=== PATIENT | female | born 1965 | race Caucasian/White ===

== ENCOUNTER → 2020-07-09 | Outpatient (CLI) | payer BC ==
--- NOTE | 2020-07-14 08:10 | MM ---
Reason for exam: screening (asymptomatic). Last mammogram was performed 1 year and 4 months ago. History: Benign lumpectomy of the right breast, 2010. Took hormonal contraceptives for 4 years beginning at age 20. Physical Findings: A clinical breast exam by your physician is recommended on an annual basis and results should be correlated with mammographic findings. MG 3D Screening Mammo W/Cad Bilateral CC and MLO view(s) were taken. Prior study comparison: March 19, 2019, mammogram, performed at [facility]. March 13, 2018, mammogram, performed at [facility]. There are scattered fibroglandular densities. Finding #1: There is suspicious, high, spiculated architectural distortion located 9 cm from the nipple in the lower quadrant, middle position of the left breast on MLO. Finding #2: There are typically benign round calcifications in both breasts. ASSESSMENT: Incomplete: need additional imaging evaluation, BI-RAD 0 RECOMMENDATION: Special view mammogram of the left breast. If lesion persists on supplemental views, image directed ultrasound is recommended. [facility] will attempt to contact patient to return for supplemental views and ultrasound if indicated.
== END | disposition home or self-care (01) ==
LOC: RADMAMWWP 08:14
PROVIDERS: ATTEND Family Medicine
DX: Z12.31 Encounter for screening mammogram for malignant neoplasm of breast (principal)
CPT/HCPCS: 77063; 77067

== ENCOUNTER → 2020-07-17 | Outpatient (CLI) | payer BC ==
--- NOTE | 2020-07-17 09:21 | MM ---
Reason for exam: additional evaluation requested from abnormal screening. Last mammogram was performed less than 1 month ago. History: Patient is postmenopausal. Benign lumpectomy of the right breast, 2010. Took hormonal contraceptives for 4 years beginning at age 20. Physical Findings: Nurse Summary: 0.5cm nodule in the left breast at 6 o'clock and a 1cm nodule in the left breast at 3 o'clock (nurse TM). MG 3D Work Up W/Cad LT LM and spot compression MLO view(s) were taken of the left breast. Prior study comparison: July 09, 2020, bilateral MG 3d screening mammo w/cad. March 19, 2019, mammogram, performed at [facility]. There are scattered fibroglandular densities. The inferior asymmetric density disperses. Palpable markers at 3 o'clock and 6 o'clock. These results were verbally communicated with the patient and result sheet given to the patient on 07/17/20. ASSESSMENT: Incomplete: need additional imaging evaluation, BI-RAD 0 RECOMMENDATION: Ultrasound of the left breast. (targeted to nurse palpated 3 o'clock and 6 o'clock)
--- NOTE | 2020-07-17 09:24 | USB ---
Reason for exam: additional evaluation requested from abnormal screening. History: Patient is postmenopausal. Benign lumpectomy of the right breast, 2009. Took hormonal contraceptives for 4 years beginning at age 20. US Breast Workup Limited LT Left limited breast ultrasound including focal area of concern, retroareolar and axilla demonstrates no cystic or solid lesion seen. Left 3-6 o'clock at the nurse palpated areas. These results were verbally communicated with the patient and result sheet given to the patient on 07/17/20. ASSESSMENT: Negative, BI-RAD 1 RECOMMENDATION: Return to routine screening mammogram schedule for both breasts. Manage on a clinical basis with regard to any suspicious palpables.
== END | disposition home or self-care (01) ==
LOC: RADMAMWWP 07:31
PROVIDERS: ATTEND Family Medicine
DX: R92.8 Other abnormal and inconclusive findings on diagnostic imaging of breast (principal)
CPT/HCPCS: 77061; 77065

== ENCOUNTER 2021-11-10 06:15 | Day surgery (SDC) | payer BC ==
[2021-11-04 16:46] VITALS: BMI 38.7
[~2021-11-10 06:15] MED LIST: LACTATED RINGERS 1,000 ML IV SCH; LIDOCAINE 1% (10MG/ML) FOR IV START INTRADERMA PRN
[2021-11-10 06:46] VITALS: TEMP 98.2
[2021-11-10] MEDS ORDERED: PROPOFOL 10 MG/ML 20 ML VIAL IV ONE (07:06)
--- NOTE | 2021-11-10 07:24 | P.PCN ---
Date of Procedure: 11/10/21 Procedure(s) Performed: BRIEF HISTORY: Patient is a 56-year-old pleasant white female scheduled for an elective colonoscopy as a part of evaluation of prior history of colon polyps. Last colonoscopy was 3 years ago. PROCEDURE PERFORMED: Colonoscopy. PREOPERATIVE DIAGNOSIS: History of colon polyps. IV sedation per Anesthesia. PROCEDURE: After informed consent was obtained, the patient, was brought into the endoscopy unit. IV sedation was administered by Anesthesia under continuous monitoring. Digital rectal examination was normal. Initially the Olympus CF-160 flexible video colonoscope was then inserted in the rectum, gradually advanced into the cecum without any difficulty. Careful examination was performed as the scope was gradually being withdrawn. Ileocecal valve and the appendiceal orifice were visualized and appeared normal. Prep was excellent. The base of cecum there was a 7 mm polyp that was removed by snare polypectomy. Mucosa of the cecum, ascending colon, transverse colon, descending colon, sigmoid colon, and rectum appeared normal. Scattered sigmoid diverticulosis. Retroflexion was performed in the rectum and grade 2 internal hemorrhoids were seen. The patient tolerated the procedure well. IMPRESSION: 7 mm cecal polyp status post snare polypectomy Scattered sigmoid diverticulosis Grade 2 internal hemorrhoids RECOMMENDATIONS: Findings of this examination were discussed with the patient as well as her family. She was advised to follow with the biopsy results. If the biopsy reveals adenoma she can have a repeat colonoscopy in 5.
[2021-11-10 07:31] VITALS: BP 115/74; PULSE 85; RESP 12
== END 2021-11-10 08:12 | disposition home or self-care (01) ==
LOC: ORWHC2ENDO 06:15
PROVIDERS: ATTEND Internal Medicine Gastroenterology
DX: K57.30 Diverticulosis of large intestine without perforation or abscess without bleeding (principal); K64.8 Other hemorrhoids; Z86.010 Personal history of colon polyps
CPT/HCPCS: 45385; J2704; 88305

== ENCOUNTER 2023-11-25 07:48 | Emergency (ER) | payer BC ==
[2023-11-25] MEDS ORDERED: SODIUM CHLORIDE 0.9% 1,000 ML IV STA (08:06)
[2023-11-25] MEDS ORDERED: ONDANSETRON 4 MG/2 ML VIAL IVP STA (08:06)
[2023-11-25] MEDS ORDERED: KETOROLAC 15 MG/ML 1 ML VIAL IVP STA (08:07)
[2023-11-25 08:13] VITALS: PULSE 87; RESP 18; TEMP 97.8
--- NOTE | 2023-11-25 08:18 | ED ---
Abdominal Pain HPI - General Chief Complaint: Back Pain/Injury Stated Complaint: Gallstones-back pain Time Seen by Provider: 11/25/23 07:49 Source: patient, RN notes reviewed Mode of arrival: ambulatory Limitations: no limitations - History of Present Illness Initial Comments: This is a 58-year-old female who presents to the emergency department for right upper quadrant pain with radiation into the back. States that she has a known history of gallstones and has been to the emergency department 3 times within the last few weeks. The pain was initially only in the right upper quadrant, however starting yesterday it began to radiate to the back. She had dairy free grilled cheese for dinner last night, and is attempting to eat blander foods without much relief in symptoms. She is now starting to become nauseous. She has not taken any over the counter medication for management of her symptoms. Her most recent ultrasound was about a month ago. She does have an upcoming appointment with Dr. Cooper, general surgery, in December, however the pain got much worse and she is worried about being able to make it until her appointment. MD Complaint: abdominal pain - Related Data Home Medications Medication Instructions Recorded Confirmed Atorvastatin [Lipitor] 40 mg PO DAILY 11/04/21 11/04/21 Calcium Carbonate/Vitamin D3 1 tab PO DAILY 11/25/23 11/25/23 [Calcium 600-D3 20 mcg (800 Unit)] Ibuprofen [Advil] 200 mg PO Q6H PRN 11/25/23 11/25/23 L.acidoph,Paracasei, B.lactis 1 cap PO DAILY 11/25/23 11/25/23 [Probiotic] Levothyroxine Sodium [Synthroid] 100 mcg PO AC-BRKFST 11/25/23 11/25/23 Multivitamins, Thera [Multivitamin 1 tab PO DAILY 11/25/23 11/25/23 (formulary)] [place]-3/Dha/Epa/Fish Oil [Fish Oil 1 cap PO DAILY 11/25/23 11/25/23 1,000 mg Softgel] Phytosterol/Pantethine [Cholestoff 1 cap PO AC-BRKFST 11/25/23 11/25/23 Complete 300Mg Sfgl] Vit C/E/Zn/Coppr/Lutein/Zeaxan 1 cap PO BID 11/25/23 11/25/23 [Preservision Areds 2 Softgel] Previous Rx's Medication Instructions Recorded HYDROcodone/APAP 5-325MG [Acosta 1 tab PO Q6HR PRN 3 Days #12 tab 11/25/23 5-325] Ketorolac [Toradol] 10 mg PO Q6HR PRN #15 tab 11/25/23 Ondansetron Odt [Zofran Odt] 4 mg PO Q8HR PRN #15 tab 11/25/23 Allergies Allergy/AdvReac Type Severity Reaction Status Date / Time oseltamivir [From Tamiflu] AdvReac Abdominal Verified 11/25/23 10:47 Pain Review of Systems ROS Statement: Those systems with pertinent positive or pertinent negative responses have been documented in the HPI. ROS Other: All systems not noted in ROS Statement are negative. Past Medical History Past Medical History: Eye Disorder, Hyperlipidemia, Thyroid Disorder Additional Past Medical History / Comment(s): MACULAR DEGENERATION, gallstones, History of Any Multi-Drug Resistant Organisms: None Reported Past Surgical History: Breast Surgery Additional Past Surgical History / Comment(s): BREAST BIOPSY Past Anesthesia/Blood Transfusion Reactions: No Reported Reaction Past Psychological History: No Psychological Hx Reported Smoking Status: Never smoker Past Alcohol Use History: Occasional, Rare Past Drug Use History: None Reported - Past Family History Mother Family Medical History: No Reported History General Exam Limitations: no limitations General appearance: alert, in distress Head exam: Present: atraumatic, normocephalic, normal inspection Respiratory exam: Present: normal lung sounds bilaterally. Absent: respiratory distress, wheezes, rales, rhonchi, stridor Cardiovascular Exam: Present: regular rate, normal rhythm, normal heart sounds. Absent: systolic murmur, diastolic murmur, rubs, gallop, clicks GI/Abdominal exam: Present: soft, tenderness (RUQ), normal bowel sounds. Absent: distended Neurological exam: Present: alert, oriented X3, CN II-XII intact Psychiatric exam: Present: normal affect, normal mood Skin exam: Present: warm, dry, intact, normal color. Absent: rash Course Vital Signs 11/25/23 11/25/23 07:55 11:54 Temperature 97.8 F Pulse Rate 87 Respiratory 18 Rate Blood Pressure 154/102 125/78 O2 Sat by Pulse 94 L Oximetry Medical Decision Making - Medical Decision Making This is a 58-year-old female who presents to the emergency department for right upper quadrant pain. Was pt. sent in by a medical professional or institution? @ -No Did you speak to anyone other than the patient for history? @ -No Did you review nursing and triage notes? @ -Yes, and I agree, it is accurate with regards to the patient's symptoms. Were old charts reviewed? @ -No Differential Diagnosis? @ -Differential Abdominal Pain Women: Appendicitis, Cholecystitis, diverticulosis, ischemic bowel, pancreatitis, hepatitis, UTI, gastroenteritis, AAA, incarcerated hernia, bowel obstruction, constipation, inflammatory bowel, hepatitis, peptic ulcer disease, splenic infarction, perforated viscus, vulvitis, ovarian torsion, PID, kidney stone, placenta abruption, this is not meant to be an all-inclusive list EKG interpreted by me (3pts min.)? @ -EKG interpreted by me demonstrating the following: Sinus rhythm. Ventricular rate 69 beats per minute, NM interval 179 ms, QRS duration 102 ms, QTC 390 ms. X-rays interpreted by me (1pt min.)? @ -Not obtained CT interpreted by me (1pt min.)? @ -Not obtained U/S interpreted by me (1pt. min.)? @ -Gallbladder US obtained. My interpretation identifies no evidence of gallbladder wall thickening. What testing was considered but not performed? (CT, X-rays, U/S, labs)? Why? @ -None What meds were considered but not given? Why? @ -None Did you discuss the management of the patient with other professionals? @ -No Did you reconcile home meds? @ -No Was smoking cessation discussed for >3mins.? @ -No Was critical care preformed (if so, how long)? @ -No Were there social determinants of health that impacted care today? How? (Homelessness, low income, unemployed, alcoholism, drug addiction, transportation, low edu. Level, literacy, decrease access to med. care, long-term, rehab)? @ -No Was there de-escalation of care discussed even if they declined? (Discuss DNR or withdrawal of care, Hospice)? @ -No What co-morbidities impacted this encounter? (DM, HTN, Smoking, COPD, CAD, Cancer, CVA, Hep., AIDS, mental health diagnosis, sleep apnea, morbid obesity)? @ -Morbid obesity, HLD Was patient admitted / discharged? @ -Discharged. Lab work obtained and found to be unremarkable. Gallbladder ultrasound obtained revealing sand-like stones/sludge in the gallbladder without evidence of acute cholecystitis or biliary duct dilation. Patient treated with I V fluids, Toradol, and Zofran with significant relief in symptoms. Advised that there is no indication for immediate surgical intervention at this time. I did call the front desk agent of Dr. Cooper's office to see if they could schedule the patient for a sooner appointment, however they advised that she is going on vacation and they are unable to move the patient up. This was discussed with the patient. Prescription for Toradol, Acosta, and Zofran provided with dosing instructions reviewed. Advised to take these as needed for symptomatic management. Also discussed following a low-fat and bland diet for the meantime to reduce the risk of future flareups. Patient discharged home in stable c ondition. Undiagnosed new problem with uncertain prognosis? @ -None Drug Therapy requiring intensive monitoring for toxicity (Heparin, Nitro, In sulin, Cardizem)? @ -None Were any procedures done? @ -None Diagnosis/symptom? @ -Cholelithiasis, biliary colic Acute, or Chronic, or Acute on Chronic? @ -Acute Uncomplicated (without systemic symptoms) or Complicated (systemic symptoms)? @ -Uncomplicated Side effects of treatment? @ -None Exacerbation, Progression, or Severe Exacerbation] @ -Not applicable Poses a threat to life or bodily function? @ -Not at this time Return precautions reviewed in depth, the patient is instructed to return to the emergency department with any new, worsening, or concerning symptoms. Patient v erbalized understanding. This case was discussed in detail with the attending ED physician, Dr. Wheeler. Presentation, findings, and treatment plan discussed in detail as well. - Lab Data Result diagrams: 11/25/23 08:09 11/25/23 08:09 Lab Results 11/25/23 11/25/23 11/25/23 Range/Units 08:09 08:09 08:09 WBC 7.1 (3.8-10.6) k/uL RBC 4.79 (3.80-5.40) m/uL Hgb 14.5 (11.4-16.0) gm/dL Hct 41.9 (34.0-46.0) % MCV 87.6 (80.0-100.0) fL MCH 30.3 (25.0-35.0) pg MCHC 34.6 (31.0-37.0) g/dL RDW 12.5 (11.5-15.5) % Plt Count 225 (150-450) k/uL MPV 7.2 Neutrophils % 62 % Lymphocytes % 25 % Monocytes % 8 % Eosinophils % 3 % Basophils % 1 % Neutrophils # 4.4 (1.3-7.7) k/uL Lymphocytes # 1.8 (1.0-4.8) k/uL Monocytes # 0.6 (0-1.0) k/uL Eosinophils # 0.2 (0-0.7) k/uL Basophils # 0.0 (0-0.2) k/uL Sodium 140 (137-145) mmol/L Potassium 4.1 (3.5-5.1) mmol/L Chloride 104 (98-107) mmol/L Carbon Dioxide 23 (22-30) mmol/L Anion Gap 13 mmol/L BUN 15 (7-17) mg/dL Creatinine 0.66 (0.52-1.04) mg/dL Est GFR (CKD-EPI)AfAm >90 (>60 ml/min/1.73 sqM) Est GFR (CKD-EPI)NonAf >90 (>60 ml/min/1.73 sqM) Glucose 104 H (74-99) mg/dL Plasma Lactic Acid Sanjay 1.3 (0.7-2.0) mmol/L Calcium 9.4 (8.4-10.2) mg/dL Total Bilirubin 1.2 (0.2-1.3) mg/dL AST 26 (14-36) U/L ALT 29 (4-34) U/L Alkaline Phosphatase 116 (38-126) U/L Troponin I (0.000-0.034) ng/mL Total Protein 7.5 (6.3-8.2) g/dL Albumin 4.3 (3.5-5.0) g/dL Amylase 71 (30-110) U/L Lipase 157 (23-300) U/L 11/25/23 Range/Units 08:09 WBC (3.8-10.6) k/uL RBC (3.80-5.40) m/uL Hgb (11.4-16.0) gm/dL Hct (34.0-46.0) % MCV (80.0-100.0) fL MCH (25.0-35.0) pg MCHC (31.0-37.0) g/dL RDW (11.5-15.5) % Plt Count (150-450) k/uL MPV Neutrophils % % Lymphocytes % % Monocytes % % Eosinophils % % Basophils % % Neutrophils # (1.3-7.7) k/uL Lymphocytes # (1.0-4.8) k/uL Monocytes # (0-1.0) k/uL Eosinophils # (0-0.7) k/uL Basophils # (0-0.2) k/uL Sodium (137-145) mmol/L Potassium (3.5-5.1) mmol/L Chloride (98-107) mmol/L Carbon Dioxide (22-30) mmol/L Anion Gap mmol/L BUN (7-17) mg/dL Creatinine (0.52-1.04) mg/dL Est GFR (CKD-EPI)AfAm (>60 ml/min/1.73 sqM) Est GFR (CKD-EPI)NonAf (>60 ml/min/1.73 sqM) Glucose (74-99) mg/dL Plasma Lactic Acid Sanjay (0.7-2.0) mmol/L Calcium (8.4-10.2) mg/dL Total Bilirubin (0.2-1.3) mg/dL AST (14-36) U/L ALT (4-34) U/L Alkaline Phosphatase (38-126) U/L Troponin I <0.012 (0.000-0.034) ng/mL Total Protein (6.3-8.2) g/dL Albumin (3.5-5.0) g/dL Amylase (30-110) U/L Lipase (23-300) U/L - Radiology Data Radiology results: report reviewed, image reviewed Disposition Clinical Impression: Biliary colic, Cholelithiasis Disposition: HOME SELF-CARE Instructions (If sedation given, give patient instructions): Biliary Colic (ED), Gallstones (ED) Additional Instructions: Return to the emergency department with any new, worsening, or concerning symptoms. Take the Toradol with Tylenol as needed for pain relief. If you choose to take the Toradol, do not take any other anti-inflammatories such as ibuprofen, take one or the other. Take the Acosta sparingly when your pain is the most severe and be aware that it may make you drowsy. You can take the Zofran up to every 8 hours as needed for nausea and vomiting. Slowly advance your diet as tolerated and remain well-hydrated. Make sure you follow a low-fat and very bland diet for the meantime to reduce the risk of future flareups. Prescriptions: HYDROcodone/APAP 5-325MG [Acosta 5-325] 1 tab PO Q6HR PRN 3 Days #12 tab PRN Reason: Pain Ketorolac [Toradol] 10 mg PO Q6HR PRN #15 tab PRN Reason: Pain Ondansetron Odt [Zofran Odt] 4 mg PO Q8HR PRN #15 tab PRN Reason: Nausea And Vomiting Is patient prescribed a controlled substance at d/c from ED?: Yes When asked, does pt state using other controlled substances?: No If prescribed controlled substance>3 days was MAPS reviewed?: Prescribed <3 Days Referrals: Paty Mei MD [Primary Care Provider] - 1-2 days
[2023-11-25 08:30] LABS: Basophils % (A) 1 %; Eosinophils # (A) 0.2 k/uL (0-0.7); Eosinophils % (A) 3 %; HCT 41.9 % (34.0-46.0); HGB 14.5 gm/dL (11.4-16.0); Lymphocytes # (A) 1.8 k/uL (1.0-4.8); Lymphocytes % (A) 25 %; MCH 30.3 pg (25.0-35.0); MCHC 34.6 g/dL (31.0-37.0); MCV 87.6 fL (80.0-100.0); Mean Platelet Volume 7.2; Monocytes # (A) 0.6 k/uL (0-1.0); Monocytes % (A) 8 %; Neutrophils # (A) 4.4 k/uL (1.3-7.7); Neutrophils % (A) 62 %; Platelet Count 225 k/uL (150-450); RBC 4.79 m/uL (3.80-5.40); RDW 12.5 % (11.5-15.5); WBC 7.1 k/uL (3.8-10.6)
[2023-11-25 08:44] LABS: ALT 29 U/L (4-34); AST 26 U/L (14-36); African American GFR (CKD) >90 (>60 ml/min/1.73 sqM); Albumin 4.3 g/dL (3.5-5.0); Alkaline Phosphatase 116 U/L (38-126); Amylase 71 U/L (30-110); Anion Gap 13 mmol/L; Blood Urea Nitrogen 15 mg/dL (7-17); Calcium 9.4 mg/dL (8.4-10.2); Carbon Dioxide 23 mmol/L (22-30); Chloride 104 mmol/L (98-107); Glucose 104 mg/dL (74-99); Lipase 157 U/L (23-300); Non-African American GFR(CKD) >90 (>60 ml/min/1.73 sqM); Potassium 4.1 mmol/L (3.5-5.1); Sodium 140 mmol/L (137-145); Total Bilirubin 1.2 mg/dL (0.2-1.3); Total Protein 7.5 g/dL (6.3-8.2)
--- NOTE | 2023-11-25 09:13 | US ---
EXAMINATION TYPE: US gallbladder DATE OF EXAM: 11/25/2023 COMPARISON: NONE CLINICAL INDICATION: Female, 58 years old with history of RUQ pain, hx of gallstones; patient has 3 e pisodes of back pain in 6 weeks and thinks it is her known GB stones TECHNIQUE: Multiple sonographic images of the right upper quadrant are obtained. FINDINGS: EXAM MEASUREMENTS: Liver Length: 19.6 cm Gallbladder Wall: 0.2 cm CBD: 0.6 cm Right Kidney: 10.4 x 4.6 x 4.5 cm Pancreas: wnl Liver: heterogeneous, echodense and enlarged Gallbladder: possible sand like stones seen within dependant portion when rolled patient LLD. No lar ge shadowing gallstones. Evidence for sonographic Gurrola's sign: no CBD: wnl Right Kidney: wnl IMPRESSION: 1. Sand-like stones/sludge suggested within the gallbladder. 2. No sonographic evidence of cholecystitis or biliary ductal dilatation. 3. Hepatomegaly and hepatic steatosis.
[2023-11-25 12:16] VITALS: BP 125/78
== END 2023-11-25 11:55 | disposition home or self-care (01) ==
LOC: EC 07:48
DX: K76.0 Fatty (change of) liver, not elsewhere classified (principal); K80.50 Calculus of bile duct without cholangitis or cholecystitis without obstruction; E78.5 Hyperlipidemia, unspecified; E07.9 Disorder of thyroid, unspecified; Z79.890 Hormone replacement therapy; Z79.899 Other long term (current) drug therapy; Z88.8 Allergy status to other drugs, medicaments and biological substances
CPT/HCPCS: 36415; 93005; 80053; 82150; 83605; 83690; 84484; 85025; 76705; 99284; 96374; 96375; 96361; J2405; J1885

== ENCOUNTER 2023-11-28 04:27 | Emergency (ER) | payer BC ==
[2023-11-28 04:56] VITALS: RESP 18
[2023-11-28] MEDS ORDERED: HYDROCORTISONE 2.5% RECTAL CREAM 30 GM TUBE RECTAL STA (06:02)
[2023-11-28] MEDS ORDERED: BENZOCAINE 20% HEMORRHOIDAL OINT 28GM RECTAL STA (06:02)
[2023-11-28] MEDS ORDERED: KETOROLAC 15 MG/ML 1 ML VIAL IM STA (06:02)
[2023-11-28] MEDS ORDERED: LACTULOSE 20 GM/30 ML CUP PO ONE (06:02)
--- NOTE | 2023-11-28 06:24 | ED ---
General Adult HPI - General Chief complaint: Recheck/Abnormal Lab/Rx Stated complaint: Constipation from pain meds Time Seen by Provider: 11/28/23 06:15 Source: patient, RN notes reviewed Mode of arrival: ambulatory Limitations: no limitations - History of Present Illness Initial comments: This is a 58 year old female who presents to the emergency department for constipation and hemorrhoidal pain. Her last bowel movement was 2 days ago. Yesterday and today when she was sitting on the toilet, she tried to push and states that it hurt her so bad that she was shaking. She tried a suppository, MiraLAX and preparation H with no relief. She also tried to do a manual disimpaction on herself, however this was too painful. Believes that the hemorrhoids are contributing to the constipation. Thinks that she needs an enema, but cannot do this herself. - Related Data Home Medications Medication Instructions Recorded Confirmed Atorvastatin [Lipitor] 40 mg PO DAILY 11/04/21 11/28/23 Calcium Carbonate/Vitamin D3 1 tab PO DAILY 11/25/23 11/28/23 [Calcium 600-D3 20 mcg (800 Unit)] Ibuprofen [Advil] 200 mg PO Q6H PRN 11/25/23 11/28/23 L.acidoph,Paracasei, B.lactis 1 cap PO DAILY 11/25/23 11/28/23 [Probiotic] Levothyroxine Sodium [Synthroid] 100 mcg PO AC-BRKFST 11/25/23 11/28/23 Multivitamins, Thera [Multivitamin 1 tab PO DAILY 11/25/23 11/28/23 (formulary)] [place]-3/Dha/Epa/Fish Oil [Fish Oil 1 cap PO DAILY 11/25/23 11/28/23 1,000 mg Softgel] Phytosterol/Pantethine [Cholestoff 1 cap PO AC-BRKFST 11/25/23 11/28/23 Complete 300Mg Sfgl] Vit C/E/Zn/Coppr/Lutein/Zeaxan 1 cap PO BID 11/25/23 11/28/23 [Preservision Areds 2 Softgel] Previous Rx's Medication Instructions Recorded HYDROcodone/APAP 5-325MG [[place] 1 tab PO Q6HR PRN 3 Days #12 tab 11/25/23 5-325] Ketorolac [Toradol] 10 mg PO Q6HR PRN #15 tab 11/25/23 Ondansetron Odt [Zofran Odt] 4 mg PO Q8HR PRN #15 tab 11/25/23 Allergies Allergy/AdvReac Type Severity Reaction Status Date / Time oseltamivir [From Tamiflu] AdvReac Abdominal Verified 11/28/23 10:00 Pain Review of Systems ROS Statement: Those systems with pertinent positive or pertinent negative responses have been documented in the HPI. ROS Other: All systems not noted in ROS Statement are negative. Past Medical History Past Medical History: Eye Disorder, Hyperlipidemia, Thyroid Disorder Additional Past Medical History / Comment(s): MACULAR DEGENERATION, gallstones, History of Any Multi-Drug Resistant Organisms: None Reported Past Surgical History: Breast Surgery Additional Past Surgical History / Comment(s): BREAST BIOPSY Past Anesthesia/Blood Transfusion Reactions: No Reported Reaction Past Psychological History: No Psychological Hx Reported Smoking Status: Never smoker Past Alcohol Use History: Occasional, Rare Past Drug Use History: None Reported - Past Family History Mother Family Medical History: No Reported History General Exam Limitations: no limitations General appearance: alert, in no apparent distress Head exam: Present: atraumatic, normocephalic, normal inspection Respiratory exam: Present: normal lung sounds bilaterally. Absent: respiratory distress, wheezes, rales, rhonchi, stridor Cardiovascular Exam: Present: regular rate, normal rhythm, normal heart sounds. Absent: systolic murmur, diastolic murmur, rubs, gallop, clicks GI/Abdominal exam: Present: soft, normal bowel sounds. Absent: distended, tenderness, guarding, rebound, rigid Neurological exam: Present: alert, oriented X3, CN II-XII intact Psychiatric exam: Present: normal affect, normal mood Skin exam: Present: warm, dry, intact, normal color. Absent: rash Course Vital Signs 11/28/23 11/28/23 04:44 11:29 Temperature 97.9 F 98.1 F Pulse Rate 94 81 Respiratory 18 18 Rate Blood Pressure 157/99 124/88 O2 Sat by Pulse 96 96 Oximetry Medical Decision Making - Medical Decision Making This is a 58 year old female who presents to the emergency department for constipation. Was pt. sent in by a medical professional or institution? @ -No Did you speak to anyone other than the patient for history? @ -No Did you review nursing and triage notes? @ -Yes, and I agree, it is accurate with regards to the patient's symptoms. Were old charts reviewed? @ -No Differential Diagnosis? @ -Differential Constipation: Medication, obstruction, tumor, this is not meant to be an all-inclusive list. EKG interpreted by me (3pts min.)? @ -Not obtained X-rays interpreted by me (1pt min.)? @ -KUB x-ray obtained. My interpretation identifies no dilation of small bowel loops. CT interpreted by me (1pt min.)? @ -Not obtained U/S interpreted by me (1pt. min.)? @ -Not obtained What testing was considered but not performed? (CT, X-rays, U/S, labs)? Why? @ -None What meds were considered but not given? Why? @ -None Did you discuss the management of the patient with other professionals? @ -No Did you reconcile home meds? @ -No Was smoking cessation discussed for >3mins.? @ -No Was critical care preformed (if so, how long)? @ -No Were there social determinants of health that impacted care today? How? (Homelessness, low income, unemployed, alcoholism, drug addiction, transportation, low edu. Level, literacy, decrease access to med. care, retirement, rehab)? @ -No Was there de-escalation of care discussed even if they declined? (Discuss DNR or withdrawal of care, Hospice)? @ -No What co-morbidities impacted this encounter? (DM, HTN, Smoking, COPD, CAD, Cancer, CVA, Hep., AIDS, mental health diagnosis, sleep apnea, morbid obesity)? @ -None Was patient admitted / discharged? @ -Discharged. KUB x-ray obtained demonstrating fecal material and gas throughout the colon and rectum without acute process. Given the discomfort and lack of improvement with over the counter regimens, she requested we proceed wi th an enema. Fleet enema administered and the patient was able to have a bowel movement and felt much better. She was discharged home with Proctosol-HC and Americaine ointment for further management of the hemorrhiods. Also advised Sitz baths and follow up with her PCP. Undiagnosed new problem with uncertain prognosis? @ -None Drug Therapy requiring intensive monitoring for toxicity (Heparin, Nitro, Insulin, Cardizem)? @ -None Were any procedures done? @ -None Diagnosis/symptom? @ -Constipation Acute, or Chronic, or Acute on Chronic? @ -Acute Uncomplicated (without systemic symptoms) or Complicated (systemic symptoms)? @ -Uncomplicated Side effects of treatment? @ -None Exacerbation, Progression, or Severe Exacerbation] @ -Not applicable Poses a threat to life or bodily function? @ -No Return precautions reviewed in depth, the patient is instructed to return to the emergency department with any new, worsening, or concerning symptoms. Patient verbalized understanding. This case was discussed in detail with the attending ED physician, Dr. Siddiqui. Presentation, findings, and treatment plan discussed in detail as well. - Radiology Data Radiology results: report reviewed, image reviewed Disposition Clinical Impression: Constipation, Hemorrhoids Disposition: HOME SELF-CARE Instructions (If sedation given, give patient instructions): Constipation (ED), High Fiber Diet (ED) Additional Instructions: Return to the emergency department with any new, worsening, or concerning symptoms. The proctosol cream provided can be used 2-4x daily and the Americaine cream can be applied up to 6x daily. Increase your fiber intake and try taking Sitz baths. Follow up with your primary care provider in 1-2 days. Is patient prescribed a controlled substance at d/c from ED?: No Referrals: Paty Mei MD [Primary Care Provider] - 1-2 days Time of Disposition: 11:10
[2023-11-28] MEDS ORDERED: NA PHOS,M-B/NA PHOS,DI-BA 133 ML ENEMA RECTAL STA (07:45)
--- NOTE | 2023-11-28 07:48 | XR ---
EXAMINATION TYPE: XR KUB DATE OF EXAM: 11/28/2023 6:17 AM CLINICAL INDICATION:Female, 58 years old with history of constipation; [facility] COMPARISON: None. TECHNIQUE: One radiographic view of the abdomen was obtained. FINDINGS: The bowel gas pattern is nonspecific without dilated loops of small or large bowel. There i s no evidence for organomegaly or pneumoperitoneum. The osseous structures are intact. No abnormal calcifications are present. Fecal material and gas are demonstrated throughout the colon and rectum. IMPRESSION: Nonspecific bowel gas pattern without radiographic evidence for acute process.
[2023-11-28] MEDS ORDERED: HYDROmorphone 1 MG/ML 1 ML SYRINGE IM STA (08:55)
[2023-11-28 11:37] VITALS: BP 124/88; PULSE 81; TEMP 98.1
== END 2023-11-28 11:31 | disposition home or self-care (01) ==
LOC: EC 04:27
DX: K59.00 Constipation, unspecified (principal); K64.9 Unspecified hemorrhoids; E78.5 Hyperlipidemia, unspecified; Z79.899 Other long term (current) drug therapy; Z88.8 Allergy status to other drugs, medicaments and biological substances
CPT/HCPCS: 74018; 99283; 96372 ×2; J1170; J1885

== ENCOUNTER 2024-01-07 15:08 | Emergency (ER) | payer BC ==
--- NOTE | 2024-01-07 16:04 | ED ---
General Adult HPI - General Chief complaint: Back Pain/Injury Stated complaint: Back/neck pain. pressure in chest Time Seen by Provider: 01/07/24 16:04 Source: patient, RN notes reviewed Mode of arrival: ambulatory Limitations: no limitations - History of Present Illness Initial comments: Patient is a 58-year-old female presenting to the ER with a chief complaint of mid back pain. She states this has been going on since Tuesday. She reports that she now is experiencing pain up the right side of her neck and across her chest. She describes it as a pressure sensation. No known cardiac history. Patient states she does have gallstones and a history of back pain. Denies any fevers, chills, nausea, vomiting, shortness of breath, lightheadedness, dizziness, diarrhea/constipation. - Related Data Home Medications Medication Instructions Recorded Confirmed Atorvastatin [Lipitor] 40 mg PO DAILY 11/04/21 11/28/23 Calcium Carbonate/Vitamin D3 1 tab PO DAILY 11/25/23 11/28/23 [Calcium 600-D3 20 mcg (800 Unit)] Ibuprofen [Advil] 200 mg PO Q6H PRN 11/25/23 11/28/23 L.acidoph,Paracasei, B.lactis 1 cap PO DAILY 11/25/23 11/28/23 [Probiotic] Levothyroxine Sodium [Synthroid] 100 mcg PO AC-BRKFST 11/25/23 11/28/23 Multivitamins, Thera [Multivitamin 1 tab PO DAILY 11/25/23 11/28/23 (formulary)] [place]-3/Dha/Epa/Fish Oil [Fish Oil 1 cap PO DAILY 11/25/23 11/28/23 1,000 mg Softgel] Phytosterol/Pantethine [Cholestoff 1 cap PO AC-BRKFST 11/25/23 11/28/23 Complete 300Mg Sfgl] Vit C/E/Zn/Coppr/Lutein/Zeaxan 1 cap PO BID 11/25/23 11/28/23 [Preservision Areds 2 Softgel] Previous Rx's Medication Instructions Recorded HYDROcodone/APAP 5-325MG [[place] 1 tab PO Q6HR PRN 3 Days #12 tab 11/25/23 5-325] Ketorolac [Toradol] 10 mg PO Q6HR PRN #15 tab 11/25/23 Ondansetron Odt [Zofran Odt] 4 mg PO Q8HR PRN #15 tab 11/25/23 Allergies Allergy/AdvReac Type Severity Reaction Status Date / Time oseltamivir [From Tamiflu] AdvReac Abdominal Verified 01/07/24 15:19 Pain Review of Systems ROS Statement: Those systems with pertinent positive or pertinent negative responses have been documented in the HPI. ROS Other: All systems not noted in ROS Statement are negative. Past Medical History Past Medical History: Eye Disorder, Hyperlipidemia, Thyroid Disorder Additional Past Medical History / Comment(s): MACULAR DEGENERATION, gallstones, History of Any Multi-Drug Resistant Organisms: None Reported Past Surgical History: Breast Surgery Additional Past Surgical History / Comment(s): BREAST BIOPSY Past Anesthesia/Blood Transfusion Reactions: No Reported Reaction Past Psychological History: No Psychological Hx Reported Smoking Status: Never smoker Past Alcohol Use History: Occasional, Rare Past Drug Use History: None Reported - Past Family History Mother Family Medical History: No Reported History General Exam Limitations: no limitations General appearance: alert, in no apparent distress, anxious Head exam: Present: atraumatic, normocephalic, normal inspection Neck exam: Present: normal inspection. Absent: tenderness, meningismus, lymphadenopathy Respiratory exam: Present: normal lung sounds bilaterally. Absent: respiratory distress, wheezes, rales, rhonchi, stridor Cardiovascular Exam: Present: regular rate, normal rhythm, normal heart sounds. Absent: systolic murmur, diastolic murmur, rubs, gallop, clicks GI/Abdominal exam: Present: soft, normal bowel sounds. Absent: distended, tenderness, guarding, rebound, rigid Psychiatric exam: Present: normal affect, normal mood, anxious Skin exam: Present: warm, dry, intact, normal color. Absent: rash Course Vital Signs 01/07/24 01/07/24 15:15 18:13 Temperature 98.1 F 97.6 F Pulse Rate 78 74 Respiratory 18 16 Rate Blood Pressure 148/92 131/88 O2 Sat by Pulse 98 97 Oximetry Medical Decision Making - Medical Decision Making Was pt. sent in by a medical professional or institution (, PA, OFFICE WORKFORCE PLANNER, urgent care, hospital, or detention...) When possible be specific @ -No Did you speak to anyone other than the patient for history (EMS, parent, family, police, friend...)? What history was obtained from this source @ -No Did you review nursing and triage notes (agree or disagree)? Why? @ -I reviewed and agree with nursing and triage notes Were old charts reviewed (outside hosp., previous admission, EMS record, old EKG, old radiological studies, urgent care reports/EKG's, detention records)? Report findings @ -No old charts were reviewed Differential Diagnosis (chest pain, altered mental status, abdominal pain women, abdominal pain men, vaginal bleeding, weakness, fever, dyspnea, syncope, headache, dizziness, GI bleed, back pain, seizure, CVA, palpatations, mental health, musculoskeletal)? @ -Differential Chest Pain:Stable Angina, Unstable Angina, STEMI, NSTEMI Aortic Dissection, Pneumothorax, Musculoskeletal, Esophageal Spasm GERD, Cholecystitis, Pancreatitis, Zoster, this is not meant to be an all-inclusive list. EKG interpreted by me (3pts min.). @ -As above X-rays interpreted by me (1pt min.). @ -Chest x-ray interpreted by me shows no acute cardiopulmonary process. CT interpreted by me (1pt min.). @ -CT angio thoracic, abdominal and pelvic aorta negative for evidence of aortic dissection, occlusion or aneurysm. There is mild atherosclerosis throughout vasculature. Right upper lung 5 mm pulmonary nodule. Outpatient follow-up U/S interpreted by me (1pt. min.). @ -None done What testing was considered but not performed or refused? (CT, X-rays, U/S, labs)? Why? @ -None What meds were considered but not given or refused? Why? @ -Patient refused Ativan. She stated her anxiety was greatly improved since arrival. Did you discuss the management of the patient with other professionals (professionals i.e. , PA, OFFICE WORKFORCE PLANNER, lab, RT, psych nurse, clinical social worker, manager life insurance, teacher, parcel post officer, residential case manager)? Give summary @ -No Was smoking cessation discussed for >3mins.? @ -No Was critical care preformed (if so, how long)? @ -No Were there social determinants of health that impacted care today? How? (Homelessness, low income, unemployed, alcoholism, drug addiction, transportation, low edu. Level, literacy, decrease access to med. care, retirement, rehab)? @ -No Was there de-escalation of care discussed even if they declined (Discuss DNR or withdrawal of care, Hospice)? DNR status @ -No What co-morbidities impacted this encounter? (DM, HTN, Smoking, COPD, CAD, Cancer, CVA, ARF, Chemo, Hep., AIDS, mental health diagnosis, sleep apnea, morbid obesity)? @ -Cholelithiasis, anxiety, obesity Was patient admitted / discharged? Hospital course, mention meds given and route, prescriptions, significant lab abnormalities, going to OR and other pertinent info. @ -Discharge. Patient is a 58-year-old female presenting to the ER with a c [facility] complaint of mid back pain with radiation to her neck. History and physical exam were completed. Vitals stable. Patient no signs of acute distress. Nontoxic-appearing. Lung sounds clear to auscultation bilaterally. Labs obtained in the ER unremarkable. Troponin x 2 negative. EKG without acute evidence of infarct or ischemia. Chest x-ray negative. CTA thoracic, abd/pel completed to rule out aortic dissection was negative for acute process. I discussed this case with ER attending, Dr. Lopez. All test results discussed with patient, questions answered. Return parameters discussed. Patient be discharged stable condition with follow-up to PCP. Patient expressed understanding and agreement with care plan. Undiagnosed new problem with uncertain prognosis? @ -No Drug Therapy requiring intensive monitoring for toxicity (Heparin, Nitro, Insulin, Cardizem)? @ -No Were any procedures done? @ -No Diagnosis/symptom? @ -Atypical chest pain Acute, or Chronic, or Acute on Chronic? @ -Acute Uncomplicated (without systemic symptoms) or Complicated (systemic symptoms)? @ -Uncomplicated Side effects of treatment? @ -No Exacerbation, Progression, or Severe Exacerbation? @ -No Poses a threat to life or bodily function? How? (Chest pain, [place], [place], pneumonia, PE, COPD, DKA, ARF, appy, cholecystitis, CVA, Diverticulitis, Homicidal, Suicidal, threat to staff... and all critical care pts) @ -No - Lab Data Result diagrams: 01/07/24 16:04 01/07/24 16:04 Lab Results 01/07/24 01/07/24 01/07/24 Range/Units 16:04 16:04 16:04 WBC 7.5 (3.8-10.6) k/uL RBC 4.61 (3.80-5.40) m/uL Hgb 14.1 (11.4-16.0) gm/dL Hct 40.6 (34.0-46.0) % MCV 88.0 (80.0-100.0) fL MCH 30.7 (25.0-35.0) pg MCHC 34.8 (31.0-37.0) g/dL RDW 12.4 (11.5-15.5) % Plt Count 231 (150-450) k/uL MPV 7.3 PT 11.1 (10.0-12.5) sec INR 1.0 (<1.2) APTT 25.0 (22.0-30.0) sec Sodium 139 (137-145) mmol/L Potassium 4.1 (3.5-5.1) mmol/L Chloride 109 H (98-107) mmol/L Carbon Dioxide 25 (22-30) mmol/L Anion Gap 5 mmol/L BUN 12 (7-17) mg/dL Creatinine 0.67 (0.52-1.04) mg/dL Est GFR (CKD-EPI)AfAm >90 (>60 ml/min/1.73 sqM) Est GFR (CKD-EPI)NonAf >90 (>60 ml/min/1.73 sqM) Glucose 98 (74-99) mg/dL Calcium 9.3 (8.4-10.2) mg/dL Magnesium 2.1 (1.6-2.3) mg/dL Total Bilirubin 1.1 (0.2-1.3) mg/dL AST 33 (14-36) U/L ALT 31 (4-34) U/L Alkaline Phosphatase 115 (38-126) U/L Troponin I (0.000-0.034) ng/mL Total Protein 7.2 (6.3-8.2) g/dL Albumin 4.4 (3.5-5.0) g/dL 01/07/24 01/07/24 Range/Units 16:04 18:44 WBC (3.8-10.6) k/uL RBC (3.80-5.40) m/uL Hgb (11.4-16.0) gm/dL Hct (34.0-46.0) % MCV (80.0-100.0) fL MCH (25.0-35.0) pg MCHC (31.0-37.0) g/dL RDW (11.5-15.5) % Plt Count (150-450) k/uL MPV PT (10.0-12.5) sec INR (<1.2) APTT (22.0-30.0) sec Sodium (137-145) mmol/L Potassium (3.5-5.1) mmol/L Chloride (98-107) mmol/L Carbon Dioxide (22-30) mmol/L Anion Gap mmol/L BUN (7-17) mg/dL Creatinine (0.52-1.04) mg/dL Est GFR (CKD-EPI)AfAm (>60 ml/min/1.73 sqM) Est GFR (CKD-EPI)NonAf (>60 ml/min/1.73 sqM) Glucose (74-99) mg/dL Calcium (8.4-10.2) mg/dL Magnesium (1.6-2.3) mg/dL Total Bilirubin (0.2-1.3) mg/dL AST (14-36) U/L ALT (4-34) U/L Alkaline Phosphatase (38-126) U/L Troponin I <0.012 <0.012 (0.000-0.034) ng/mL Total Protein (6.3-8.2) g/dL Albumin (3.5-5.0) g/dL - EKG Data -: EKG Interpreted by Tx EKG Comments: EKG taken at 15: 53 shows normal sinus rhythm with no acute ST segment or T wave abnormalities. Ventricular rate 64, NC interval 157, QRS duration 102, QT/QTc 397/407. - Radiology Data Radiology results: report reviewed, image reviewed Disposition Clinical Impression: Atypical chest pain Disposition: HOME SELF-CARE Condition: Stable Instructions (If sedation given, give patient instructions): Chest Pain (DC) Additional Instructions: Please return to the ER for any new or worsening symptoms. Is patient prescribed a controlled substance at d/c from ED?: No Referrals: Paty Del Angel NPC [Family Provider] - 1-2 days Time of Disposition: 19:38
--- NOTE | 2024-01-07 16:13 | XR ---
EXAMINATION TYPE: XR chest 2V DATE OF EXAM: 01/07/2024 3:45 PM CLINICAL INDICATION:Female, 58 years old with history of chest pain; [facility] COMPARISON: None TECHNIQUE: XR chest 2V Frontal and lateral views of the chest. FINDINGS: Lungs/Pleura: There is no evidence of pleural effusion, focal consolidation, or pneumothorax. Pulmonary vascularity: Unremarkable. Heart/mediastinum: Cardiomediastinal silhouette is unremarkable. Musculoskeletal: No acute osseous pathology. IMPRESSION: No acute cardiopulmonary disease/process.
[2024-01-07] MEDS ORDERED: LORazepam 2 MG/ML INJ IV PRN (16:24)
[2024-01-07 16:25] LABS: HCT 40.6 % (34.0-46.0); HGB 14.1 gm/dL (11.4-16.0); MCH 30.7 pg (25.0-35.0); MCHC 34.8 g/dL (31.0-37.0); Mean Platelet Volume 7.3; Platelet Count 231 k/uL (150-450); RBC 4.61 m/uL (3.80-5.40); RDW 12.4 % (11.5-15.5); WBC 7.5 k/uL (3.8-10.6)
[2024-01-07 16:36] LABS: Prothrombin Time 11.1 sec (10.0-12.5)
[2024-01-07 16:43] LABS: ALT 31 U/L (4-34); AST 33 U/L (14-36); African American GFR (CKD) >90 (>60 ml/min/1.73 sqM); Albumin 4.4 g/dL (3.5-5.0); Alkaline Phosphatase 115 U/L (38-126); Anion Gap 5 mmol/L; Blood Urea Nitrogen 12 mg/dL (7-17); Calcium 9.3 mg/dL (8.4-10.2); Carbon Dioxide 25 mmol/L (22-30); Chloride 109 mmol/L (98-107); Glucose 98 mg/dL (74-99); Magnesium 2.1 mg/dL (1.6-2.3); Non-African American GFR(CKD) >90 (>60 ml/min/1.73 sqM); Potassium 4.1 mmol/L (3.5-5.1); Sodium 139 mmol/L (137-145); Total Bilirubin 1.1 mg/dL (0.2-1.3); Total Protein 7.2 g/dL (6.3-8.2)
--- NOTE | 2024-01-07 17:13 | CT ---
EXAMINATION TYPE: CT angio thor/abd pel aorta CT DLP: 2049.7 mGycm, Automated exposure control for dose reduction was used. DATE OF EXAM: 01/07/2024 4:50 PM COMPARISON: . CLINICAL INDICATION:Female, 58 years old with history of back pain; [facility], Pt c/o back pain x 3 days an d neck pain that radiates across her chest starting today. Hx of gallstones. TECHNIQUE: Dissection protocol: Multiple axial CT images of the chest, abdomen, and pelvis were obtai nathanael prior and to the administration of IV contrast. 3-D reformats and maximum intensity projection fo rmat were performed on a separate workstation. Contrast used:100ml mL of Isovue 300 with IV Contrast, Oral contrast used: FINDINGS: ARTERIAL VASCULATURE: No evidence for intramural hematoma on noncontrast imaging. Ascending thoracic aorta and descending thoracic aorta are within normal limits for size. The abdominal aorta is within normal limits for size. Scattered atherosclerotic plaque is seen along the course of the arterial vas culature. The origins of the aortic arch are patent. The major vessels of the abdominal aorta are wit hin normal limits. No evidence for occlusion. The celiac axis, superior mesenteric artery and bilater al renal arteries are patent. There are 2 left renal arteries and one right renal artery. Inferior me senteric artery is patent. No evidence for dissection or occlusion. PULMONARY ARTERIAL VASCULATURE: Normal caliber. No evidence of filling defect to suggest pulmonary em bolus. VENOUS SYSTEM: Unremarkable. Lungs/pleura: No evidence for focal consolidation, pneumothorax or pleural effusion. There is minimal centrilobular emphysema changes throughout the lungs. Right upper lung pulmonary nodule measuring 5 mm series 501 image 37. Right middle lobe 3 mm pulmonary nodule. Heart: Within normal limits. Mediastinum: No gross evidence of adenopathy. Lower Neck: No significant findings. Abdomen: Liver: Unremarkable. Gallbladder and Bile ducts: High density in the lumen layering dependently could represent small gall stones.+ Pancreas: Unremarkable. Spleen: Unremarkable. Adrenal glands: Unremarkable. Kidneys and Ureters: No hydronephrosis. Bladder: Unremarkable. Reproductive: Unremarkable. Stomach and Bowel: Unremarkable. No evidence of bowel obstruction. Peritoneum: No evidence of pneumoperitoneum, free fluid, or adenopathy. Musculoskeletal: The osseous structures appear intact. Lymph nodes: No evidence of lymphadenopathy. Abdominal wall/soft tissues: Unremarkable. IMPRESSION: 1. No evidence for aortic dissection, occlusion or aneurysm. 2. Mild atherosclerosis throughout the arterial vasculature. 3. Right upper lung 5 mm pulmonary nodule. Consider surveillance imaging in high-risk patients in 12 months.
[2024-01-07 18:14] VITALS: BP 131/88; PULSE 74; RESP 16; TEMP 97.6
[2024-01-07] MEDS: KETOROLAC 15 MG/ML 1 ML VIAL IVP STA (19:42)
== END 2024-01-07 19:47 | disposition home or self-care (01) ==
LOC: EC 15:08
DX: I70.8 Atherosclerosis of other arteries (principal); R91.1 Solitary pulmonary nodule; E78.5 Hyperlipidemia, unspecified; E07.9 Disorder of thyroid, unspecified; Z79.890 Hormone replacement therapy; Z79.899 Other long term (current) drug therapy; Z88.8 Allergy status to other drugs, medicaments and biological substances
CPT/HCPCS: 36415; 93005; 80053; 83735; 84484; 85027; 85610; 85730; 71046; 71275; 74174; 99284; 96374; J1885; Q9967

== ENCOUNTER 2024-01-20 03:27 | Emergency (ER) | payer BC ==
[2024-01-20 04:00] VITALS: BP 148/90; PULSE 74; RESP 18; TEMP 97.8
[2024-01-20 04:47] LABS: Basophils % (A) 1 %; Eosinophils # (A) 0.2 k/uL (0-0.7); Eosinophils % (A) 4 %; HCT 40.5 % (34.0-46.0); HGB 14.1 gm/dL (11.4-16.0); Lymphocytes # (A) 1.9 k/uL (1.0-4.8); Lymphocytes % (A) 31 %; MCH 31.1 pg (25.0-35.0); MCHC 34.8 g/dL (31.0-37.0); MCV 89.4 fL (80.0-100.0); Mean Platelet Volume 7.2; Monocytes # (A) 0.5 k/uL (0-1.0); Monocytes % (A) 9 %; Neutrophils # (A) 3.3 k/uL (1.3-7.7); Neutrophils % (A) 54 %; Platelet Count 197 k/uL (150-450); RBC 4.53 m/uL (3.80-5.40); RDW 12.4 % (11.5-15.5); WBC 6.1 k/uL (3.8-10.6)
[2024-01-20 04:55] LABS: ALT 30 U/L (4-34); African American GFR (CKD) >90 (>60 ml/min/1.73 sqM); Albumin 4.2 g/dL (3.5-5.0); Anion Gap 12 mmol/L; Blood Urea Nitrogen 14 mg/dL (7-17); Calcium 9.1 mg/dL (8.4-10.2); Carbon Dioxide 19 mmol/L (22-30); Chloride 109 mmol/L (98-107); Creatine Kinase 134 U/L (30-135); Glucose 102 mg/dL (74-99); Non-African American GFR(CKD) >90 (>60 ml/min/1.73 sqM); Sodium 140 mmol/L (137-145); Total Bilirubin 1.2 mg/dL (0.2-1.3); Total Protein 7.1 g/dL (6.3-8.2)
[2024-01-20 05:02] LABS: AST 37 U/L (14-36); Alkaline Phosphatase 101 U/L (38-126); Potassium 4.4 mmol/L (3.5-5.1)
--- NOTE | 2024-01-20 05:06 | ED ---
General Adult HPI - General Chief complaint: Extremity Injury, Lower Stated complaint: Leg pain in both legs Time Seen by Provider: 01/20/24 03:41 Source: patient Mode of arrival: ambulatory Limitations: no limitations - History of Present Illness Initial comments: Mamta is a 58-year-old female who presents the ER today for evaluation of bilateral lower extremity pain. Patient was seen and evaluated for this over the past few weeks, she states she has been told that a lot of her pain is secondary to anxiety she was recently prescribed a new anxiety medication and picked it up from the pharmacy today and plans to start taking it tomorrow. Patient states that she had some pain during the day but it went away and she was able to be on her feet and walk for 3 hours at her job at the [employer]. Patient states she then came home went to bed and woke from sleep with pain. Pain is in her bilateral medial legs. It is from the groin all the way down to the feet. Seems to be best when she is sitting worse when she lays down. Not worse with activity. Is on a statin medication she has been on it for a number of years without any side effects. Patient's had no recent injuries no falls no back pain. - Related Data Home Medications Medication Instructions Recorded Confirmed Atorvastatin [Lipitor] 40 mg PO DAILY 11/04/21 11/28/23 Calcium Carbonate/Vitamin D3 1 tab PO DAILY 11/25/23 11/28/23 [Calcium 600-D3 20 mcg (800 Unit)] Ibuprofen [Advil] 200 mg PO Q6H PRN 11/25/23 11/28/23 L.acidoph,Paracasei, B.lactis 1 cap PO DAILY 11/25/23 11/28/23 [Probiotic] Levothyroxine Sodium [Synthroid] 100 mcg PO AC-BRKFST 11/25/23 11/28/23 Multivitamins, Thera [Multivitamin 1 tab PO DAILY 11/25/23 11/28/23 (formulary)] [place]-3/Dha/Epa/Fish Oil [Fish Oil 1 cap PO DAILY 11/25/23 11/28/23 1,000 mg Softgel] Phytosterol/Pantethine [Cholestoff 1 cap PO AC-BRKFST 11/25/23 11/28/23 Complete 300Mg Sfgl] Vit C/E/Zn/Coppr/Lutein/Zeaxan 1 cap PO BID 11/25/23 11/28/23 [Preservision Areds 2 Softgel] Previous Rx's Medication Instructions Recorded HYDROcodone/APAP 5-325MG [[place] 1 tab PO Q6HR PRN 3 Days #12 tab 11/25/23 5-325] Ketorolac [Toradol] 10 mg PO Q6HR PRN #15 tab 11/25/23 Ondansetron Odt [Zofran Odt] 4 mg PO Q8HR PRN #15 tab 11/25/23 Allergies Allergy/AdvReac Type Severity Reaction Status Date / Time oseltamivir [From Tamiflu] AdvReac Abdominal Verified 01/20/24 03:36 Pain Review of Systems ROS Statement: Those systems with pertinent positive or pertinent negative responses have been documented in the HPI. ROS Other: All systems not noted in ROS Statement are negative. Past Medical History Past Medical History: Eye Disorder, Hyperlipidemia, Thyroid Disorder Additional Past Medical History / Comment(s): MACULAR DEGENERATION, gallstones, History of Any Multi-Drug Resistant Organisms: None Reported Past Surgical History: Breast Surgery Additional Past Surgical History / Comment(s): BREAST BIOPSY Past Anesthesia/Blood Transfusion Reactions: No Reported Reaction Past Psychological History: No Psychological Hx Reported Smoking Status: Never smoker Past Alcohol Use History: Occasional, Rare Past Drug Use History: None Reported - Past Family History Mother Family Medical History: No Reported History General Exam Limitations: no limitations General appearance: alert, in no apparent distress Head exam: Present: atraumatic Eye exam: Present: PERRL ENT exam: Present: normal exam Neck exam: Present: normal inspection Respiratory exam: Absent: respiratory distress Cardiovascular Exam: Present: regular rate, normal rhythm GI/Abdominal exam: Present: soft. Absent: distended Rectal exam: Present: deferred Neurological exam: Present: alert, oriented X3 Psychiatric exam: Present: anxious Skin exam: Present: warm, dry Course Vital Signs 01/20/24 03:33 Temperature 97.8 F Pulse Rate 74 Respiratory 18 Rate Blood Pressure 148/90 O2 Sat by Pulse 98 Oximetry Medical Decision Making - Medical Decision Making Was pt. sent in by a medical professional or institution (, PA, PROCESS WORKER, urgent care, hospital, or residential...) When possible be specific @ -No Did you speak to anyone other than the patient for history (EMS, parent, family, police, friend...)? What history was obtained from this source @ -No Did you review nursing and triage notes (agree or disagree)? Why? @ -I reviewed and agree with nursing and triage notes Were old charts reviewed (outside hosp., previous admission, EMS record, old EKG, old radiological studies, urgent care reports/EKG's, residential records)? Report findings @ -No old charts were reviewed Differential Diagnosis (chest pain, altered mental status, abdominal pain women, abdominal pain men, vaginal bleeding, weakness, fever, dyspnea, syncope, headache, dizziness, GI bleed, back pain, seizure, CVA, palpatations, mental health)? @ -Differential includes muscle strain, electrolyte abnormality, medication reaction EKG interpreted by me (3pts min.). @ -As above X-rays interpreted by me (1pt min.). @ -None done CT interpreted by me (1pt min.). @ -None done U/S interpreted by me (1pt. min.). @ -None done What testing was considered but not performed or refused? (CT, X-rays, U/S, labs)? Why? @ -None What meds were considered but not given or refused? Why? @ -None Did you discuss the management of the patient with other professionals (professionals i.e. , PA, PROCESS WORKER, lab, RT, psych nurse, director of social work, bush and vine farmer fruit crops, teacher, mortgage loan officer, director case)? Give summary @ -No Was smoking cessation discussed for >3mins.? @ -No Was critical care preformed (if so, how long)? @ -No Were there social determinants of health that impacted care today? How? (Homele ssness, low income, unemployed, alcoholism, drug addiction, transportation, low edu. Level, literacy, decrease access to med. care, nursing home, rehab)? @ -No Was there de-escalation of care discussed even if they declined (Discuss DNR or withdrawal of care, Hospice)? DNR status @ -No What co-morbidities impacted this encounter? (DM, HTN, Smoking, COPD, CAD, Cancer, CVA, ARF, Chemo, Hep., AIDS, mental health diagnosis, sleep apnea, morbid obesity)? @ -None Was patient admitted / discharged? Hospital course, mention meds given and route, prescriptions, significant lab abnormalities, going to OR and other pertinent info. @ -Discharge Patient was seen and evaluated, labs were obtained electrolytes are within normal limits CO2 is mildly low consistent with patient hyperventilating. CK is not elevated. Undiagnosed new problem with uncertain prognosis? @ -No Drug Therapy requiring intensive monitoring for toxicity (Heparin, Nitro, Insulin, Cardizem)? @ -No Were any procedures done? @ -No Diagnosis/symptom? @ -Bilateral lower extremity pain Acute, or Chronic, or Acute on Chronic? @ -Acute Uncomplicated (without systemic symptoms) or Complicated (systemic symptoms)? @ -Uncomplicated Side effects of treatment? @ -No Exacerbation, Progression, or Severe Exacerbation? @ -No Poses a threat to life or bodily function? How? (Chest pain, [place], [place], pneumonia, PE, COPD, DKA, ARF, appy, cholecystitis, CVA, Diverticulitis, Homicidal, Suicidal, threat to staff... and all critical care pts) @ -Unlikely - Lab Data Result diagrams: 01/20/24 04:37 01/20/24 04:37 Lab Results 01/20/24 01/20/24 Range/Units 04:37 04:37 WBC 6.1 (3.8-10.6) k/uL RBC 4.53 (3.80-5.40) m/uL Hgb 14.1 (11.4-16.0) gm/dL Hct 40.5 (34.0-46.0) % MCV 89.4 (80.0-100.0) fL MCH 31.1 (25.0-35.0) pg MCHC 34.8 (31.0-37.0) g/dL RDW 12.4 (11.5-15.5) % Plt Count 197 (150-450) k/uL MPV 7.2 Neutrophils % 54 % Lymphocytes % 31 % Monocytes % 9 % Eosinophils % 4 % Basophils % 1 % Neutrophils # 3.3 (1.3-7.7) k/uL Lymphocytes # 1.9 (1.0-4.8) k/uL Monocytes # 0.5 (0-1.0) k/uL Eosinophils # 0.2 (0-0.7) k/uL Basophils # 0.0 (0-0.2) k/uL Sodium 140 (137-145) mmol/L Potassium 4.4 (3.5-5.1) mmol/L Chloride 109 H (98-107) mmol/L Carbon Dioxide 19 L (22-30) mmol/L Anion Gap 12 mmol/L BUN 14 (7-17) mg/dL Creatinine 0.57 (0.52-1.04) mg/dL Est GFR (CKD-EPI)AfAm >90 (>60 ml/min/1.73 sqM) Est GFR (CKD-EPI)NonAf >90 (>60 ml/min/1.73 sqM) Glucose 102 H (74-99) mg/dL Calcium 9.1 (8.4-10.2) mg/dL Magnesium 2.0 (1.6-2.3) mg/dL Total Bilirubin 1.2 (0.2-1.3) mg/dL AST 37 H (14-36) U/L ALT 30 (4-34) U/L Alkaline Phosphatase 101 (38-126) U/L Creatine Kinase 134 (30-135) U/L Total Protein 7.1 (6.3-8.2) g/dL Albumin 4.2 (3.5-5.0) g/dL Disposition Clinical Impression: Myalgia Disposition: HOME SELF-CARE Condition: Stable Instructions (If sedation given, give patient instructions): Musculoskeletal Pain (ED) Is patient prescribed a controlled substance at d/c from ED?: No Referrals: Paty Mei MD [Primary Care Provider] - 1-2 days
== END 2024-01-20 05:23 | disposition home or self-care (01) ==
LOC: EC 03:27
DX: M79.10 Myalgia, unspecified site (principal); E78.5 Hyperlipidemia, unspecified; E07.9 Disorder of thyroid, unspecified; Z79.890 Hormone replacement therapy; Z79.899 Other long term (current) drug therapy; Z88.8 Allergy status to other drugs, medicaments and biological substances
CPT/HCPCS: 36415; 80053; 82550; 83735; 85025; 99283

== ENCOUNTER → 2024-06-05 | Outpatient (CLI) | payer BC ==
--- NOTE | 2024-06-06 09:13 | MM ---
Reason for Exam: Screening (asymptomatic). Last mammogram was performed 3 year(s) and 11 month(s) ago. Patient History: Menarche at age 14. First Full-Term at age 22. Postmenopausal. Patient has history of breast feeding. Hormonal Contraceptives for 4 years from age 20 until age 24. 2010, Benign Lumpectomy on the right side. Risk Values: Jackie 5 year model risk: 1.1%. NCI Lifetime model risk: 7.2%. Prior Study Comparison: 03/19/2019 Screening Mammogram, [facility]. 07/09/2020 Bilateral Screening Mammogram, [facility]. 07/17/2020 Left Diagnostic Mammogram, [facility]. Tissue Density: The breasts are heterogeneously dense, which may obscure small masses. Findings: Analyzed By CAD. There is no suspicious group of microcalcifications or new suspicious mass in either breast. Benign appearing calcifications. Overall Assessment: Benign, BI-RAD 2 Management: Screening Mammogram of both breasts in 1 year. . Patient should continue monthly self-breast exams. A clinical breast exam by your physician is recommended on an annual basis. This exam should not preclude additional follow-up of suspicious palpable abnormalities. Note on Jackie scores and lifetime risk: 1. A Jackie score greater than 3% is considered moderate risk. If this is the case, consider specialist referral to assess eligibility for a risk reducing agent. 2. If overall lifetime risk for the development of breast cancer is 20% or higher, the patient may qualify for future screening with alternating mammogram and breast MRI. Electronically signed and approved by: Luis William M.D. Radiologis
== END | disposition home or self-care (01) ==
LOC: RADMAMWWP 07:26
PROVIDERS: ATTEND Family Medicine
DX: Z12.31 Encounter for screening mammogram for malignant neoplasm of breast (principal); R92.333 Mammographic heterogeneous density, bilateral breasts; Z78.0 Asymptomatic menopausal state
CPT/HCPCS: 77067

== ENCOUNTER → 2024-06-15 | Outpatient (CLI) | payer BC ==
--- NOTE | 2024-06-15 08:38 | BD ---
EXAMINATION TYPE: Axial Bone Density DATE OF EXAM: 06/15/2024 CLINICAL HISTORY: 58 years old Female. ICD-10 CODE: N95.1 MENOPAUSAL AND FEMALE CLIMACTERIC STATES Height: 249.6 Weight: 68 FRAX RISK QUESTIONS: Alcohol (3 or more units per day): no Family History (Parent hip fracture): no Glucocorticoids (More than 3mos): no (Ex: prednisone, prednisolone, methylprednisolone, dexamethasone, and hydrocortisone). History of Fracture in Adulthood: no Secondary Osteoporosis: 1. Type 1 Diabetes: no 2. Hyperthyroidism: no 3. Menopause before 45: yes 4. Malnutrition: no 5. Chronic liver disease: no Rheumatoid Arthritis: no Current Tobacco Use: no RISK FACTORS HISTORY OF: Hip Fracture (Right/Left): no Spine Fracture: no History of Wrist Fracture: no Surgery to Spine/Hip(right/left)/Wrist (right/left): no MEDICATIONS: Thyroid Medications: levothyroxine How Long: past 20 years Osteoporosis Medications: no EXAM MEASUREMENTS: Bone mineral densitometry was performed using the [employer] Interactive System. Bone mineral density as measured about the Lumbar spine is: ----- L1-L4(G/cm2): 1.077 T Score Values are as follows: ----- L1: -1.1 ----- L2: -1.4 ----- L3: -0.7 ----- L4: -0.3 ----- L1-L4: -0.9 Z Score Values are as follows: ----- L1: -1.3 ----- L2: -1.7 ----- L3: -0.9 ----- L4: -0.5 ----- L1-L4: -1.1 Baseline Study Bone mineral density about the R hip (g/cm2): 1.056 Bone mineral density about the L hip (g/cm2): 1.057 T Score values are as follows: -----R Neck: -0.5 -----L Neck: -0.5 -----R Total: 0.4 -----L Total: 0.4 Z Score values are as follows: -----R Neck: -0.2 -----L Neck: -0.2 -----R Total: 0.3 -----L Total: 0.3 Baseline Study FRAX%s: The graph provided illustrates a 5.3% chance for a major osteoporotic fx and a 0.2% chance fo r the hips probability for fx in 10 years time. IMPRESSION: Osteopenia (T Score between -2.5 and -1). There is slightly increased risk of fracture and the patient may be considered for treatment. Re-Screen 2-5 years. NOTE: T-SCORE=SD OF THE YOUNG ADULT MEAN.
== END | disposition home or self-care (01) ==
LOC: RADBDWWP 07:03
PROVIDERS: ATTEND Family Medicine
DX: M85.88 Other specified disorders of bone density and structure, other site (principal); N95.1 Menopausal and female climacteric states
CPT/HCPCS: 77080

== ENCOUNTER 2024-08-03 05:50 | Day surgery (SDC) | payer BC ==
--- NOTE | 2024-08-03 05:34 | P.GSHP ---
History of Present Illness H&P Date: 08/03/24 CHIEF COMPLAINT: Cholecystitis HISTORY OF PRESENT ILLNESS: The patient is a 58-year-old female who presents with history of epigastric including right upper quadrant abdominal pain. She underwent diagnostic studies for her gallbladder. Separately her clinical picture was consistent with cholecystitis. Now she presents for surgical intervention. PAST MEDICAL HISTORY: Please see list PAST SURGICAL HISTORY: Please see list MEDICATIONS: Please see list ALLERGIES: Please see list SOCIAL HISTORY: Please see list FAMILY HISTORY: Please see list REVIEW OF ORGAN SYSTEMS: CONSTITUTIONAL: No reports of fevers or chills. HEENT: Denies any troubles with the vision or hearing. ENDOCRINE: No reports of hypothyroidism. No diabetes. RESPIRATORY: No recent pneumonias. CARDIOVASCULAR: Denies chest pain or palpitations GI: No blood in stools or constipation. MUSCULOSKELETAL: Has occasional joint pain including back pain. NEURO: No seizure disorders or headaches. No recent stroke. PSYCH: No depression or suicidal ideation. GENITOURINARY: No active blood in urine. No urinary hesitancy. HEMATOLOGIC: No personal or family history of DVTs or pulmonary emboli. SKIN: No skin cancer. PHYSICAL EXAM: VITAL SIGNS: Afebrile vital signs stable GENERAL: Well-developed pleasant in no acute distress. HEENT: No scleral icterus. Extraocular movements grossly intact. Moist buccal mucosa. NECK: Supple without lymphadenopathy. CHEST: Unlabored respirations. Equal bilateral excursions. CARDIOVASCULAR: Regular rate regular rhythm rhythm. Distal 2+ pulses. ABDOMEN: Soft, nondistended. Tender along the epigastrium and right upper quadrant. MUSCULOSKELETAL: No clubbing, cyanosis, or edema. NEURO: Cranial nerves II to XII within normal limits. No focal or lateralizing signs. PSYCH: Alert and oriented to person, place and time. SKIN: Well-perfused good skin turgor. REPORTS: Cardiac has been obtained. EKG: Borderline EKG LABS: Reviewed from March 2024 CBC and LFTs within normal limits. ASSESSMENT: 1. Epigastric and right upper quadrant abdominal pain 2. Chronic cholecystitis 3. Symptomatic gallstones. 4. Morbid obesity due to excess calories, BMI 35.2. PLAN: 1. Will need a robotic cholecystectomy possible open. Benefits and risks were described. 2. Heparin for DVT prophylaxis 5000 units. 3. Antibiotic prophylaxis. 4. CBC and CMP on day of procedure 5. Non-narcotic pre and post op pain management reviewed. 6. Indocyanine green for biliary imaging. Past Medical History Past Medical History: Eye Disorder, Hearing Disorder / Deafness, Hyperlipidemia, Thyroid Disorder Additional Past Medical History / Comment(s): MACULAR DEGENERATION, gallstones, left ear occasional tinnitus History of Any Multi-Drug Resistant Organisms: None Reported Past Surgical History: Breast Surgery Additional Past Surgical History / Comment(s): BREAST BIOPSY - benign right breast excisional biopsy Past Anesthesia/Blood Transfusion Reactions: No Reported Reaction Smoking Status: Never smoker - Past Family History Mother Family Medical History: No Reported History Medications and Allergies Home Medications Medication Instructions Recorded Confirmed Type Atorvastatin [Lipitor] 40 mg PO DAILY 11/04/21 07/30/24 History Ibuprofen [Advil] 200 mg PO Q6H PRN 11/25/23 07/30/24 History L.acidoph,Paracasei, B.lactis 1 cap PO DAILY 11/25/23 07/30/24 History [Probiotic] Levothyroxine Sodium [Synthroid] 100 mcg PO AC-BRKFST 11/25/23 07/30/24 History Multivitamins, Thera [Multivitamin 2 tab PO DAILY 11/25/23 07/30/24 History (formulary)] [place]-3/Dha/Epa/Fish Oil [Fish Oil 1 cap PO DAILY 11/25/23 07/30/24 History 1,000 mg Softgel] Phytosterol/Pantethine [Cholestoff 2 cap PO AC-BRKFST 11/25/23 07/30/24 History Complete 300Mg Sfgl] Vit C/E/Zn/Coppr/Lutein/Zeaxan 1 cap PO BID 11/25/23 07/30/24 History [Preservision Areds 2 Softgel] Escitalopram Oxalate [Lexapro] 10 mg PO DAILY 07/30/24 07/30/24 History Allergies Allergy/AdvReac Type Severity Reaction Status Date / Time oseltamivir [From Tamiflu] AdvReac Abdominal Verified 07/30/24 13:58 Pain
[~2024-08-03 05:50] MED LIST changes: +INDOCYANINE GREEN 25 MG VIAL IV STA; -LACTATED RINGERS 1,000 ML IV SCH; -LIDOCAINE 1% (10MG/ML) FOR IV START INTRADERMA PRN
[2024-08-03] MEDS ORDERED: HYDROmorphone 0.5 MG/0.5 ML SYRINGE IVP PRN (07:00)
[2024-08-03] MEDS: LACTATED RINGERS 1,000 ML IV SCH (07:00)
[2024-08-03] MEDS ORDERED: MIDAZOLAM 2 MG/2 ML VIAL IV PRN (07:00)
[2024-08-03] MEDS: ACETAMINOPHEN TAB 500 MG TAB PO PRN (07:11)
[2024-08-03] MEDS: ONDANSETRON 4 MG/2 ML VIAL IVP PRN (07:12)
[2024-08-03] MEDS: HEPARIN SODIUM,PORCINE 5,000 UNIT/ML 1 ML VIAL SQ PRN (07:12)
[2024-08-03] MEDS: SCOPOLAMINE 1 MG/72 HR PATCH TRANSDERM STA (07:13)
[2024-08-03] MEDS: DEXAMETHASONE SOD PHOSPHATE 4 MG/ML 1 ML VIAL IVP STA (07:13)
[2024-08-03 07:14] LABS: Basophils % (A) 1 %; Eosinophils # (A) 0.3 k/uL (0-0.7); Eosinophils % (A) 4 %; HCT 39.1 % (34.0-46.0); HGB 13.3 gm/dL (11.4-16.0); Lymphocytes # (A) 1.8 k/uL (1.0-4.8); Lymphocytes % (A) 28 %; MCH 30.9 pg (25.0-35.0); MCHC 33.9 g/dL (31.0-37.0); Mean Platelet Volume 6.7; Monocytes # (A) 0.6 k/uL (0-1.0); Monocytes % (A) 9 %; Neutrophils # (A) 3.5 k/uL (1.3-7.7); Neutrophils % (A) 56 %; Platelet Count 254 k/uL (150-450); RDW 12.5 % (11.5-15.5); WBC 6.3 k/uL (3.8-10.6)
[2024-08-03] MEDS ORDERED: GLYCOPYRROLATE 0.2 MG/ML 2 ML VIAL ONE (07:24)
[2024-08-03] MEDS ORDERED: PROPOFOL 10 MG/ML 20 ML VIAL IV ONE (07:24)
[2024-08-03] MEDS ORDERED: NEOSTIGMINE 1 MG/ML 10 ML VIAL ONE (07:24)
[2024-08-03] MEDS ORDERED: SUCCINYLCHOLINE CHLORIDE 200 MG/10 ML VIAL IV ONE (07:24)
[2024-08-03] MEDS ORDERED: LIDOCAINE 1% INJ 10MG/ML (20 ML MDV) ONE (07:24)
[2024-08-03] MEDS ORDERED: ROCURONIUM 10 MG/ML (5 ML VIAL) IV ONE (07:24)
[2024-08-03] MEDS ORDERED: SUGAMMADEX SODIUM 200 MG/2 ML SDV IV ONE (07:24)
[2024-08-03] MEDS ORDERED: HYDROmorphone (PF) 1 MG/ML ONE (07:24)
[2024-08-03] MEDS ORDERED: MIDAZOLAM 2 MG/2 ML VIAL ONE (07:24)
[2024-08-03] MEDS ORDERED: fentaNYL (PF) 50 MCG/ML 2 ML AMP ONE (07:24)
[2024-08-03 07:26] LABS: ALT 22 U/L (4-34); African American GFR (CKD) >90 (>60 ml/min/1.73 sqM); Albumin 4.1 g/dL (3.5-5.0); Anion Gap 6 mmol/L; Blood Urea Nitrogen 18 mg/dL (7-17); Calcium 9.3 mg/dL (8.4-10.2); Carbon Dioxide 25 mmol/L (22-30); Chloride 107 mmol/L (98-107); Glucose 90 mg/dL (74-99); Non-African American GFR(CKD) >90 (>60 ml/min/1.73 sqM); Sodium 138 mmol/L (137-145); Total Bilirubin 1.3 mg/dL (0.2-1.3); Total Protein 7.2 g/dL (6.3-8.2)
[2024-08-03 07:27] LABS: AST 34 U/L (14-36); Alkaline Phosphatase 91 U/L (38-126); Potassium 4.6 mmol/L (3.5-5.1)
[2024-08-03] MEDS: IV FLUID CONTINUATION 1,000 ML IV ONE (07:28)
[2024-08-03] MEDS: LIDOCAINE 1%-EPI 1:100,000 20 ML VIAL SQ ONE (07:29)
[2024-08-03] MEDS: LACTATED RINGERS 1,000 ML IV ONE (08:34)
[2024-08-03 08:56] VITALS: TEMP 98.7
--- NOTE | 2024-08-03 10:09 | P.OP ---
Date of Procedure: 08/03/24 Description of Procedure: SURGEON: TERESA COOPER MD PREOPERATIVE DIAGNOSES: 1. Chronic cholecystitis 2. Right upper quadrant abdominal pain due to chronic cholecystitis 3. Morbid obesity due to excess calories, BMI 36.5 4. Hypothyroidism 5. Depressive disorder POSTOPERATIVE DIAGNOSES: 1. Chronic cholecystitis 2. Right upper quadrant abdominal pain due to chronic cholecystitis 3. Morbid obesity due to excess calories, BMI 36.5 4. Hypothyroidism 5. Depressive disorder 6. Fatty liver disease with hepatomegaly OPERATION: Robotic-assisted da Marian Xi laparoscopic cholecystectomy, multiport with FIREFLY ESTIMATED BLOOD LOSS: 5 mL. SPECIMENS REMOVED: Gallbladder. COMPLICATIONS: None. OPERATIVE FINDINGS: 1. Fatty liver disease with hepatomegaly INDICATIONS: The patient is a 58-year-old female who presents with chronic cholecystitis and right upper quadrant abdominal pain. Robotic assisted laparoscopic approach was described. Benefits and risks of the procedure including but not limited to bleeding, infection, injury to the biliary tree was described. Informed consent was obtained. DESCRIPTION OF PROCEDURE: Patient was brought to the operating room, placed in supine position. After general induction, the abdomen had been prepped and draped in standard sterile fashion. The robotic da Marian XI system was primed. After a timeout protocol was performed, the patient had been prepped and draped in standard sterile fashion. The patient was injected with indocyanine green. A 5 mm 0 degrees laparoscopic trocar entry was performed along the left upper quadrant. The abdomen insufflated to 15 mmHg pressure which was tolerated well. Diagnostic laparoscopy demonstrated no injury to bowel viscera or mesentery. The liver surface was unremarkable. Next, two 8 mm robotic ports were placed along the right upper abdomen. The camera 8-mm port was maintained along the epigastrium. Another 8 mm port was placed along the left upper abdominal wall after exchanging the 5 mm port. Please note that the ports were placed at least 10 to 15 cm away from the target anatomy of the gallbladder. The robot was docked along the left lateral abdomen. The patient was repositioned in reverse Trendelenburg position. Using a grasper for arm 3, a grasper for arm 4, including hook cautery for arm 1, the robotic system was docked and primed as described. Instruments were interchanged by the spa assistant manager including hook cautery, Bovie cautery and clip appliers. I had sat at the console. Dome down technique starting from the gallbladder fundus toward the infundibulum was performed after elevating the gallbladder using a sponge. Next attention was brought to the infundibulum and cystic structures. The infundibulum and cystic duct were dissected free from surrounding tissues. The cystic duct was isolated. The common bile duct was dilated. FIREFLY was used to identify the cystic artery and cystic structures. A critical view of safety was obtained. Large PLASTIC clips were used throughout the entire case. Using a clip building official, 3 clips were placed at the junction of the infundibulum and cystic duct. The cystic duct was divided between clips. Next, the cystic artery was clipped twice and cauterized. 3 clips were made at the hepatic fossa. Electro-Bovie cautery was used to remove the gallbladder from the hepatic fossa. Hemostasis was checked and found to be adequate. The robot was undocked. I re-scrubbed into the case. Using a 10 mm Endo Catch bag via the left upper quadrant incision, the specimen was removed from the abdominal cavity. All pneumoperitoneum instruments were evacuated from the abdominal cavity. The incisions were reapproximated using 4-0 Monocryl in an interrupted subcuticular fashion. Fascial defects were less than 8 mm in size. Please note along the trocar sites, local anesthetic was placed as a field block prior to insertion of all instruments. Liquid glue was applied to the skin. At the end of the procedure needle, sponge, and instrument count had been verified correct by the nursing surgical services director. The patient was transferred to postanesthesia care unit in stable condition. Intraoperative films were shared with the patient's family. Plan - Discharge Summary Discharge Rx Participant: No New Discharge Prescriptions: New Simethicone [Gas-X] 125 mg PO AC-TID PRN #30 capsule PRN Reason: Pain Ibuprofen [Motrin] 600 mg PO Q8HR PRN #30 tab PRN Reason: Pain Acetaminophen Tab [Tylenol Tab] 1,000 mg PO Q6HR PRN #30 tablet PRN Reason: Pain Continue Phytosterol/Pantethine [Cholestoff Complete 300Mg Sfgl] 2 cap PO AC-BRKFST [place]-3/Dha/Epa/Fish Oil [Fish Oil 1,000 mg Softgel] 1 cap PO DAILY Levothyroxine Sodium [Synthroid] 100 mcg PO AC- Escitalopram Oxalate [Lexapro] 10 mg PO DAILY Atorvastatin [Lipitor] 40 mg PO DAILY Vit C/E/Zn/Coppr/Lutein/Zeaxan [Preservision Areds 2 Softgel] 1 cap PO BID Multivitamins, Thera [Multivitamin (formulary)] 2 tab PO DAILY L.acidoph,Paracasei, B.lactis [Probiotic] 1 cap PO DAILY Discontinued Ibuprofen [Advil] 200 mg PO Q6H PRN PRN Reason: Pain Or Fever > 100.5 Discharge Medication List Atorvastatin [Lipitor] 40 mg PO DAILY 11/04/21 [History] L.acidoph,Paracasei, B.lactis [Probiotic] 1 cap PO DAILY 11/25/23 [History] Levothyroxine Sodium [Synthroid] 100 mcg PO AC-BRKFST 11/25/23 [History] Multivitamins, Thera [Multivitamin (formulary)] 2 tab PO DAILY 11/25/23 [History] [place]-3/Dha/Epa/Fish Oil [Fish Oil 1,000 mg Softgel] 1 cap PO DAILY 11/25/23 [History] Phytosterol/Pantethine [Cholestoff Complete 300Mg Sfgl] 2 cap PO AC-BRKFST 11/25/23 [History] Vit C/E/Zn/Coppr/Lutein/Zeaxan [Preservision Areds 2 Softgel] 1 cap PO BID 11/25/23 [History] Escitalopram Oxalate [Lexapro] 10 mg PO DAILY 07/30/24 [History] Acetaminophen Tab [Tylenol Tab] 1,000 mg PO Q6HR PRN #30 tablet 08/03/24 [Rx] Ibuprofen [Motrin] 600 mg PO Q8HR PRN #30 tab 08/03/24 [Rx] Simethicone [Gas-X] 125 mg PO AC-TID PRN #30 capsule 08/03/24 [Rx] Follow up Appointment(s)/Referral(s): Tereas Cooper MD [STAFF PHYSICIAN] - 08/07/24 6:30 pm (Telehealth) Patient Instructions/Handouts: *Surgery [facility] - (Anesthesia) Discharge Instructions Outpatient Surgery Activity/Diet/Wound Care/Special Instructions: TELEHEALTH - DR WILL CALL YOU BETWEEN 9 am to 8 pm NO LONG DRIVES OR AIRPLANE RIDES OVER 30 MINUTES FOR THE NEXT 2 WEEKS DUE TO HIGH RISK OF PULMONARY EMBOLISM/DVTs, SEPTEMBER 02 Recommend low-fat diet for the next 2 days. No lifting over 10 pounds in 2 weeks until September 02March shower. No bath tub soaks for two weeks until September 02 Diet as tolerated. Use Tylenol, simethicone and ibuprofen or Aleve scheduled for the next 24-48 hours for best pain relief. Use ice along incisions for today to prevent swelling. Discharge Disposition: HOME SELF-CARE
[2024-08-03 10:18] VITALS: RESP 16
[2024-08-03 10:28] VITALS: BP 136/68; PULSE 80
== END 2024-08-03 10:54 | disposition home or self-care (01) ==
LOC: OR 05:50
PROVIDERS: ATTEND Surgery Plastic and Reconstructive Surgery
DX: K80.10 Calculus of gallbladder with chronic cholecystitis without obstruction
CPT/HCPCS: 47563; 80053; 85025; 88304; S2900

== ENCOUNTER → 2025-06-07 | Outpatient (CLI) | payer BC ==
--- NOTE | 2025-06-07 08:44 | MM ---
Reason for Exam: Screening (asymptomatic). Last screening mammogram was performed 12 month(s) ago. Patient History: Menarche at age 14. First Full-Term at age 22. Postmenopausal. Patient has history of breast feeding. Hormonal Contraceptives for 4 years from age 20 until age 24. 2010, Benign Lumpectomy on the right side. Risk Values: Jackie 5 year model risk: 1.1%. NCI Lifetime model risk: 7.1%. Prior Study Comparison: 07/09/2020 Bilateral Screening Mammogram, [facility]. 07/17/2020 Left Diagnostic Mammogram, [facility]. 06/05/2024 Bilateral MG screening mammo w CAD, [facility]. Tissue Density: There are scattered areas of fibroglandular density. Findings: Analyzed By CAD. Right breast: There is no suspicious group of microcalcifications or new suspicious mass. Left breast: There is no suspicious group of microcalcifications or new suspicious mass. Overall Assessment: Negative, BI-RAD 1 Management: Screening Mammogram of both breasts in [address] [facility] will attempt to contact patient to return for supplemental views and ultrasound if indicated. Patient should continue monthly self-breast exams. A clinical breast exam by your physician is recommended on an annual basis. This exam should not preclude additional follow-up of suspicious palpable abnormalities. Note on Jackie scores and lifetime risk: 1. A Jackie score greater than 3% is considered moderate risk. If this is the case, consider specialist referral to assess eligibility for a risk reducing agent. 2. If overall lifetime risk for the development of breast cancer is 20% or higher, the patient may qualify for future screening with alternating mammogram and breast MRI. [facility], , 06/07/2025 8:40 AM. Electronically signed and approved by: Silverio Brandon DO
== END | disposition home or self-care (01) ==
LOC: RADMAMWWP 08:10
PROVIDERS: ATTEND Family Medicine
DX: Z12.31 Encounter for screening mammogram for malignant neoplasm of breast (principal); R92.323 Mammographic fibroglandular density, bilateral breasts; Z78.0 Asymptomatic menopausal state; Z92.0 Personal history of contraception
CPT/HCPCS: 77063; 77067